=== PATIENT | male | born 1990 | race Hispanic/Latino ===

== ENCOUNTER 2017-04-06 00:46 | Emergency (ER) | payer OTHER ==
[~2017-04-06] VITALS: Ht 177.8 cm; Wt 72.7 kg
[2017-04-06 00:49] VITALS: BP 109/67
[2017-04-06] MEDS ORDERED: INSULANT SC (00:57)
[2017-04-06] MEDS ORDERED: INSUR50VL SC (00:57)
--- NOTE | 2017-04-06 08:05 | REP ---
Right wrist four views: There is a nondisplaced transverse fracture of the distal radius. There is a fracture at the base of the ulnar styloid. Carpal ossicles and joint spaces are normal. There are no calcifications or foreign bodies. Signed by Christiano Raymundo MD 04/06/2017 07:56 A
--- NOTE | 2017-04-06 08:06 | REP ---
Right hand four views: There is a nondisplaced transverse fracture of the distal radius. There is a fracture at the base of the ulnar styloid. Mineralization and joint spaces are otherwise unremarkable. There are no other fractures. No dislocation. No calcifications or foreign bodies. Signed by Christiano Rayumndo MD 04/06/2017 07:57 A
== END 2017-04-06 02:35 | disposition home or self-care (01) ==
LOC: M ED 00:46
DX: S52.521A Torus fracture of lower end of right radius, initial encounter for closed fracture (principal); S52.611A Displaced fracture of right ulna styloid process, initial encounter for closed fracture; S00.81XA Abrasion of other part of head, initial encounter; W19.XXXA Unspecified fall, initial encounter; Y92.149 Unspecified place in prison as the place of occurrence of the external cause; Y93.9 Activity, unspecified; Y99.9 Unspecified external cause status; E11.9 Type 2 diabetes mellitus without complications; Z87.891 Personal history of nicotine dependence; Z79.4 Long term (current) use of insulin